=== PATIENT | male | born 1965 | race African-American/Black ===

== ENCOUNTER 2019-01-24 11:51 | Emergency (ER) | payer MEDICAID ==
[~2019-01-24] VITALS: Ht 160 cm; Wt 65.0 kg
[2019-01-24] MEDS ORDERED: KETOROLAC 30MG/ML VIAL IV STA (12:33)
[2019-01-24] MEDS ORDERED: SODIUM CHLORIDE 0.9% 1,000 ML IV ONE (12:33)
[2019-01-24] MEDS ORDERED: ONDANSETRON HCL 4MG/2ML INJ IV STA (12:33)
[2019-01-24] MEDS ORDERED: MORPHINE SULFATE 4 MG/ML CPJ (NOT FOR IM USE) IV STA (12:33)
[2019-01-24] MEDS ORDERED: PIPERACILLIN/TAZ 3.375G PREMIX 50 ML IV ONE (12:45)
[2019-01-24] MEDS ORDERED: VANCOMYCIN 1 G PREMIX 200 ML IV ONE (12:45)
[2019-01-24 13:01] LABS: BASOPHILS % 1.2 % (0.0-2.0); HEMATOCRIT. 55.9 % (42.0-52.0); HEMOGLOBIN. 18.6 g/dL (14.0-18.0); LYMPHOCYTES % 29.2 % (20.0-50.0); MEAN CORPUSCULAR HEMOGLOBIN 29.4 pg (28.0-32.0); MEAN CORPUSCULAR VOLUME 88.3 fL (80.0-94.0); MEAN PLATELET VOLUME 9.4 fl (7.4-10.4); MONOCYTES % 7.3 % (2.0-8.0); NEUTROPHILS % 58.3 % (40.0-76.0); PLATELET 133 x1000/uL (130-400); RED BLOOD CELL COUNT 6.32 mill/uL (4.7-6.1); RED CELL DISTRIBUTION WIDTH 14.5 % (11.6-14.6)
[2019-01-24 13:11] LABS: PROTHROMBIN TIME 10.6 sec (9.6-11.0)
[2019-01-24 13:12] LABS: CHLORIDE 106 mEq/L (98-107)
[2019-01-24 14:45] VITALS: BP 146/72
== END 2019-01-24 15:13 | disposition home or self-care (01) ==
LOC: ER 13:14
DX: L03.114 Cellulitis of left upper limb (principal); E11.9 Type 2 diabetes mellitus without complications; I10 Essential (primary) hypertension
CPT/HCPCS: 36415; 73120; 80053; 83605; 83880; 84484; 85025; 85610; 85730; 87040; 96365; 96367; 96375; 99284; J1885; J2270; J2405; J2543; J3370; J7030; Z7610

== ENCOUNTER 2019-02-16 00:48 | Emergency (ER) | payer MEDICAID ==
[~2019-02-16] VITALS: Ht 160 cm; Wt 67.0 kg
[2019-02-16] MEDS ORDERED: DIPHENHYDRAMINE 25MG CAPSULE PO ONE (03:15)
[2019-02-16 03:38] LABS: BASOPHILS % 0.8 % (0.0-2.0); EOSINOPHILS % 5.3 % (0.0-5.0); HEMOGLOBIN. 16.1 g/dL (14.0-18.0); LYMPHOCYTES % 26.6 % (20.0-50.0); MEAN CORPUSCULAR HEMOGLOBIN 29.2 pg (28.0-32.0); MEAN CORPUSCULAR VOLUME 87.3 fL (80.0-94.0); MEAN PLATELET VOLUME 8.7 fl (7.4-10.4); NEUTROPHILS % 58.3 % (40.0-76.0); PLATELET 113 x1000/uL (130-400); RED BLOOD CELL COUNT 5.49 mill/uL (4.7-6.1)
[2019-02-16 03:40] LABS: CHLORIDE 107 mEq/L (98-107)
[2019-02-16 03:42] LABS: PROTHROMBIN TIME 10.7 sec (9.6-11.0)
[2019-02-16 04:28] VITALS: BP 135/79
== END 2019-02-16 04:31 | disposition home or self-care (01) ==
LOC: ER 00:48
DX: S50.862A Insect bite (nonvenomous) of left forearm, initial encounter (principal); S50.861A Insect bite (nonvenomous) of right forearm, initial encounter; S70.362A Insect bite (nonvenomous), left thigh, initial encounter; S70.361A Insect bite (nonvenomous), right thigh, initial encounter; E11.9 Type 2 diabetes mellitus without complications; I10 Essential (primary) hypertension; Z90.49 Acquired absence of other specified parts of digestive tract; Z98.890 Other specified postprocedural states; W57.XXXA Bitten or stung by nonvenomous insect and other nonvenomous arthropods, initial encounter; Y93.89 Activity, other specified; Y92.89 Other specified places as the place of occurrence of the external cause; Y99.8 Other external cause status
CPT/HCPCS: 36415; 80053; 82962; 85025; 85610; 99283; Q0163

== ENCOUNTER 2019-02-22 09:01 | Emergency (ER) | payer MEDICAID ==
[~2019-02-22] VITALS: Ht 160 cm; Wt 68.0 kg
[2019-02-22] MEDS ORDERED: DIPHENHYDRAMINE 25MG CAPSULE PO ONE (09:30)
[2019-02-22 09:34] VITALS: BP 141/84
== END 2019-02-22 09:43 | disposition home or self-care (01) ==
LOC: ER 09:01
DX: L30.9 Dermatitis, unspecified (principal); E11.9 Type 2 diabetes mellitus without complications; I10 Essential (primary) hypertension; Z90.49 Acquired absence of other specified parts of digestive tract
CPT/HCPCS: 99283; Q0163

== ENCOUNTER 2019-03-28 20:57 | Emergency (ER) | payer MEDICAID ==
[~2019-03-28] VITALS: Ht 160 cm; Wt 67.0 kg
[2019-03-28 23:31] VITALS: BP 125/69
== END 2019-03-29 00:01 | disposition home or self-care (01) ==
LOC: ER 20:57
DX: S60.561A Insect bite (nonvenomous) of right hand, initial encounter (principal); L03.113 Cellulitis of right upper limb; E11.9 Type 2 diabetes mellitus without complications; I10 Essential (primary) hypertension; Z90.49 Acquired absence of other specified parts of digestive tract; W57.XXXA Bitten or stung by nonvenomous insect and other nonvenomous arthropods, initial encounter; Y93.89 Activity, other specified; Y92.018 Other place in single-family (private) house as the place of occurrence of the external cause
CPT/HCPCS: 99283

== ENCOUNTER 2019-04-24 01:02 | Emergency (ER) | payer MEDICAID ==
[~2019-04-24] VITALS: Ht 160 cm; Wt 65.0 kg
[2019-04-24 04:14] LABS: CLARITY URINE CLEAR (CLEAR); COLOR URINE YELLOW (YELLOW); KETONES URINE NEGATIVE (NEGATIVE); LEUKOCYTE ESTERASE URINE TRACE (NEGATIVE); NITRITE URINE NEGATIVE (NEGATIVE); OCCULT BLOOD URINE NEGATIVE (NEGATIVE); PH URINE 5.5 (4.5-8.0); PROTEIN URINE NEGATIVE (NEGATIVE); SPECIFIC GRAVITY URINE 1.039 (1.005-1.030)
[2019-04-24 04:32] LABS: BASOPHILS % 0.8 % (0.0-2.0); EOSINOPHILS % 3.6 % (0.0-5.0); HEMATOCRIT. 48.2 % (42.0-52.0); LYMPHOCYTES % 29.2 % (20.0-50.0); MEAN CORPUSCULAR VOLUME 87.5 fL (80.0-94.0); MEAN PLATELET VOLUME 10.2 fl (7.4-10.4); NEUTROPHILS % 57.4 % (40.0-76.0); PLATELET 117 x1000/uL (130-400); RED BLOOD CELL COUNT 5.51 mill/uL (4.7-6.1); RED CELL DISTRIBUTION WIDTH 13.6 % (11.6-14.6)
[2019-04-24 04:38] LABS: CHLORIDE 107 mEq/L (98-107)
[2019-04-24] MEDS ORDERED: INSULIN REGULAR (HUMULIN R) UD 100 UNITS/ML SYR SUBCUT ONE (05:00)
[2019-04-24] MEDS ORDERED: INSULIN REGULAR (HUMULIN R) 300UNITS/3ML SUBCUT SCH (05:45)
[2019-04-24 06:00] VITALS: BP 147/57
== END 2019-04-24 06:41 | disposition home or self-care (01) ==
LOC: ER 02:19
DX: N30.00 Acute cystitis without hematuria (principal); E11.65 Type 2 diabetes mellitus with hyperglycemia; I10 Essential (primary) hypertension; Z79.4 Long term (current) use of insulin; Z90.49 Acquired absence of other specified parts of digestive tract
CPT/HCPCS: 36415; 80053; 81003; 82962; 83690; 85025; 87086; 96372; 99283; J1815

== ENCOUNTER 2019-08-26 23:27 | Emergency (ER) | payer MEDICAID ==
[~2019-08-26] VITALS: Ht 160 cm; Wt 65.0 kg
[2019-08-27] MEDS ORDERED: KETOROLAC 60MG/2ML VIAL IM ONE (08:15)
[2019-08-27 08:43] LABS: CLARITY URINE CLEAR (CLEAR); COLOR URINE YELLOW (YELLOW); KETONES URINE NEGATIVE (NEGATIVE); LEUKOCYTE ESTERASE URINE NEGATIVE (NEGATIVE); NITRITE URINE NEGATIVE (NEGATIVE); OCCULT BLOOD URINE NEGATIVE (NEGATIVE); PROTEIN URINE NEGATIVE (NEGATIVE); UROBILINOGEN URINE 0.2 E.U./dL (0.2-1.0)
[2019-08-27] MEDS ORDERED: LIDOCAINE HCL 1% 20ML VIAL (Pyxis) INJ INFIL ONE (09:00)
[2019-08-27] MEDS ORDERED: CEFTRIAXONE SODIUM 1 G/VIAL IM ONE (09:00)
[2019-08-27 09:22] VITALS: BP 155/78
== END 2019-08-27 09:25 | disposition home or self-care (01) ==
LOC: ER 23:27
DX: R30.0 Dysuria (principal); I10 Essential (primary) hypertension; E11.9 Type 2 diabetes mellitus without complications; Z87.440 Personal history of urinary (tract) infections; Z90.49 Acquired absence of other specified parts of digestive tract
CPT/HCPCS: 81003; 87086; 96372; 99284; J0696; J1885; J3490

== ENCOUNTER 2020-01-21 00:17 | Emergency (ER) | payer MEDICAID ==
[~2020-01-21] VITALS: Ht 160 cm; Wt 64.0 kg
[2020-01-21 00:46] VITALS: BP 146/93
[2020-01-21] MEDS ORDERED: LIDOCAINE HCL 1% 20ML VIAL (Pyxis) INJ INFIL ONE (01:45)
[2020-01-21] MEDS ORDERED: AZITHROMYCIN 500 MG TABLET PO ONE (01:45)
[2020-01-21] MEDS ORDERED: CEFTRIAXONE SODIUM 250 MG/VIAL IM ONE (01:45)
[2020-01-21 02:43] LABS: CLARITY URINE CLEAR (CLEAR); COLOR URINE YELLOW (YELLOW); KETONES URINE TRACE (NEGATIVE); LEUKOCYTE ESTERASE URINE NEGATIVE (NEGATIVE); NITRITE URINE NEGATIVE (NEGATIVE); OCCULT BLOOD URINE NEGATIVE (NEGATIVE); PROTEIN URINE 1+ (NEGATIVE); SPECIFIC GRAVITY URINE 1.039 (1.005-1.030); UROBILINOGEN URINE 0.2 E.U./dL (0.2-1.0)
== END 2020-01-21 03:18 | disposition home or self-care (01) ==
LOC: ER 00:17
DX: N34.2 Other urethritis (principal); R30.0 Dysuria; E11.9 Type 2 diabetes mellitus without complications; I10 Essential (primary) hypertension; Z87.440 Personal history of urinary (tract) infections; Z90.49 Acquired absence of other specified parts of digestive tract
CPT/HCPCS: 81003; 96372; 99283; J0696; J3490

== ENCOUNTER 2020-01-24 15:27 | Emergency (ER) | payer MEDICAID ==
[~2020-01-24] VITALS: Ht 160 cm; Wt 63.0 kg
[2020-01-24 15:39] VITALS: BP 142/99
[2020-01-24 16:59] LABS: CLARITY URINE CLEAR (CLEAR); COLOR URINE YELLOW (YELLOW); KETONES URINE NEGATIVE (NEGATIVE); LEUKOCYTE ESTERASE URINE NEGATIVE (NEGATIVE); NITRITE URINE NEGATIVE (NEGATIVE); OCCULT BLOOD URINE NEGATIVE (NEGATIVE); PROTEIN URINE NEGATIVE (NEGATIVE); SPECIFIC GRAVITY URINE 1.038 (1.005-1.030); UROBILINOGEN URINE 0.2 E.U./dL (0.2-1.0)
[2020-01-24] MEDS ORDERED: SODIUM CHLORIDE 0.9% 1,000 ML IV ONE (17:28)
[2020-01-24 17:46] LABS: BASOPHILS % 0.7 % (0.0-2.0); EOSINOPHILS % 0.7 % (0.0-5.0); HEMATOCRIT. 51.7 % (42.0-52.0); HEMOGLOBIN. 17.3 g/dL (14.0-18.0); LYMPHOCYTES % 26.1 % (20.0-50.0); MEAN CORPUSCULAR HEMOGLOBIN 29.2 pg (28.0-32.0); MEAN CORPUSCULAR VOLUME 87.3 fL (80.0-94.0); MEAN PLATELET VOLUME 9.7 fl (7.4-10.4); MONOCYTES % 14.2 % (2.0-8.0); NEUTROPHILS % 58.3 % (40.0-76.0); PLATELET 115 x1000/uL (130-400); RED BLOOD CELL COUNT 5.92 mill/uL (4.7-6.1); RED CELL DISTRIBUTION WIDTH 13.7 % (11.6-14.6)
[2020-01-24 17:52] LABS: CHLORIDE 102 mEq/L (98-107)
[2020-01-24 18:00] LABS: BETA HYDROXYBUTYRATE 0.1 mMol/L (0.0-0.3)
[2020-01-24] MEDS ORDERED: INSULIN REGULAR (HUMULIN R) 300UNITS/3ML SUBCUT ONE (19:45)
== END 2020-01-24 21:12 | disposition home or self-care (01) ==
LOC: ER 15:27
DX: N48.1 Balanitis (principal); E11.65 Type 2 diabetes mellitus with hyperglycemia; I10 Essential (primary) hypertension; Z90.49 Acquired absence of other specified parts of digestive tract; Z79.4 Long term (current) use of insulin
CPT/HCPCS: 36415; 80053; 81003; 82010; 82962; 85025; 87086; 96372; 99283; J1815; J7030

== ENCOUNTER 2020-05-31 16:49 | Emergency (ER) | payer MEDICAID ==
[~2020-05-31] VITALS: Ht 157.5 cm; Wt 66.0 kg
[2020-05-31] MEDS ORDERED: AZITHROMYCIN 500 MG TABLET PO ONE (21:30)
[2020-05-31] MEDS ORDERED: LIDOCAINE HCL 1% 20ML VIAL (Pyxis) INJ INFIL ONE (21:30)
[2020-05-31] MEDS ORDERED: CEFTRIAXONE SODIUM 250 MG/VIAL IM ONE (21:30)
[2020-05-31 21:31] LABS: CLARITY URINE CLOUDY (CLEAR); COLOR URINE YELLOW (YELLOW); KETONES URINE 1+ (NEGATIVE); LEUKOCYTE ESTERASE URINE NEGATIVE (NEGATIVE); NITRITE URINE NEGATIVE (NEGATIVE); OCCULT BLOOD URINE NEGATIVE (NEGATIVE); PROTEIN URINE 1+ (NEGATIVE); SPECIFIC GRAVITY URINE 1.036 (1.005-1.030); UROBILINOGEN URINE 0.2 E.U./dL (0.2-1.0)
[2020-05-31 22:25] VITALS: BP 160/96
== END 2020-05-31 22:27 | disposition home or self-care (01) ==
LOC: ER 16:49
DX: N34.2 Other urethritis (principal); E11.9 Type 2 diabetes mellitus without complications; I10 Essential (primary) hypertension; B20 Human immunodeficiency virus [HIV] disease; Z90.49 Acquired absence of other specified parts of digestive tract; Z87.440 Personal history of urinary (tract) infections
CPT/HCPCS: 81003; 96372; 99283; J0696; J3490

== ENCOUNTER 2020-11-23 23:01 | Inpatient (IN) | payer MEDICAID ==
[~2020-11-23] VITALS: Ht 157.5 cm; Wt 64.0 kg
[2020-11-24] MEDS ORDERED: PIPERACILLIN/TAZ 3.375G PREMIX 50 ML IV ONE (00:30)
[2020-11-24] MEDS ORDERED: VANCOMYCIN 1 G PREMIX 200 ML IV ONE (00:30)
[2020-11-24 00:54] LABS: EOSINOPHILS % 1.2 % (0.0-5.0); HEMATOCRIT. 46.9 % (42.0-52.0); HEMOGLOBIN. 16.1 g/dL (14.0-18.0); LYMPHOCYTES % 29.6 % (20.0-50.0); MEAN CORPUSCULAR HEMOGLOBIN 29.4 pg (28.0-32.0); MEAN CORPUSCULAR VOLUME 85.8 fL (80.0-94.0); MEAN PLATELET VOLUME 9.3 fl (7.4-10.4); MONOCYTES % 9.5 % (2.0-8.0); NEUTROPHILS % 58.7 % (40.0-76.0); PLATELET 161 x1000/uL (130-400); RED BLOOD CELL COUNT 5.47 mill/uL (4.7-6.1); RED CELL DISTRIBUTION WIDTH 13.9 % (11.6-14.6)
[2020-11-24 00:58] LABS: CHLORIDE 104 mEq/L (98-107)
[2020-11-24 01:02] LABS: PROTHROMBIN TIME 10.6 sec (9.6-11.0)
[2020-11-24] MEDS ORDERED: VANCOMYCIN 1 G PREMIX 200 ML IV SCH (03:00)
[2020-11-24] MEDS ORDERED: PIPERACILLIN/TAZ 3.375G PREMIX 50 ML IV SCH ×2 (03:00→09:00)
[2020-11-24] MEDS ORDERED: MAGNESIUM/ALUMINUM HYDROXIDE/SIMETHICONE 30ML UDC PO PRN (03:00)
[2020-11-24] MEDS ORDERED: DIPHENHYDRAMINE 50MG/ML VIAL IV PRN (03:00)
[2020-11-24] MEDS ORDERED: DEXTROSE 50% WATER 50ML SYRINGE IV PRN (03:00)
[2020-11-24] MEDS ORDERED: ZOLPIDEM TARTRATE 5MG TABLET PO PRN (03:00)
[2020-11-24] MEDS ORDERED: CLONIDINE 0.1MG TABLET PO PRN (03:00)
[2020-11-24] MEDS ORDERED: ACETAMINOPHEN 325MG TABLET PO PRN ×2 (03:00)
[2020-11-24] MEDS ORDERED: ONDANSETRON HCL 4MG/2ML INJ IV PRN (03:00)
[2020-11-24] MEDS: SODIUM CHLORIDE 0.9% INJ 3ML FLUSH IVF SCH ×3 (06:29→21:06)
[2020-11-24] MEDS: BLOOD SUGAR DIAGNOSTIC STRIP TEST SCH ×4 (09:00→20:52)
[2020-11-24] MEDS ORDERED: PIPERACILLIN/TAZOBACTAM 3.375 G in DEXT 5% WATER 100 ML IV SCH (10:00)
[2020-11-24] MEDS ORDERED: DOLU50TA MT (11:06)
[2020-11-24] MEDS ORDERED: LISI20TA31 MT (11:06)
[2020-11-24] MEDS ORDERED: [UNRECOGNIZED DRUG - OTHER] (11:07)
[2020-11-24] MEDS ORDERED: SULF1TAB47 PO (11:07)
[2020-11-24] MEDS ORDERED: LANTUSUD SUBCUT (11:07)
[2020-11-24 12:00] VITALS: BP 134/87
[2020-11-24] MEDS ORDERED: VANCOMYCIN 750 MG PREMIX 150 ML IV SCH (12:00)
[2020-11-24] MEDS: VANCOMYCIN 1 G PREMIX 200 ML IV SCH (12:00)
[2020-11-24] MEDS: INSULIN LISPRO 100 UNITS/ML SUBCUT SCH ×3 (12:50→21:13)
[2020-11-24] MEDS ORDERED: TETANUS AND DIPHTHERIA TOX/PF 0.5ML SYR (ADULT) IM ONE (14:15)
[2020-11-24 14:50] VITALS: BP 134/87
[2020-11-24] MEDS: SULFAMETHOXAZOLE/TRIMETHOPRIM 800/160MG TABLET PO SCH (16:00)
[2020-11-24] MEDS: PIPERACILLIN/TAZOBACTAM 3.375 G in DEXT 5% WATER 100 ML IV SCH ×2 (16:00→21:06)
[2020-11-24] MEDS: ENOXAPARIN 40MG/0.4ML SYR SUBCUT SCH (17:30)
[2020-11-24 20:00] VITALS: BP 130/76
[2020-11-24] MEDS ORDERED: HYDROCODONE/ACETAMINOPHEN 10/325MG TABLET PO PRN (20:00)
[2020-11-24] MEDS: LISINOPRIL 10MG TABLET PO SCH (21:06)
[2020-11-24] MEDS ORDERED: INSULIN GLARGINE UD 100 UNITS/ML SYR SUBCUT SCH (22:00)
[2020-11-25] VITALS: BP 119/76
[2020-11-25] MEDS: VANCOMYCIN 1 G PREMIX 200 ML IV SCH ×2 (00:54→15:18)
[2020-11-25] MEDS: PIPERACILLIN/TAZOBACTAM 3.375 G in DEXT 5% WATER 100 ML IV SCH ×4 (03:52→21:55)
[2020-11-25 04:00] VITALS: BP 126/81
[2020-11-25] MEDS: BLOOD SUGAR DIAGNOSTIC STRIP TEST SCH ×4 (06:21→21:34)
[2020-11-25] MEDS: SODIUM CHLORIDE 0.9% INJ 3ML FLUSH IVF SCH ×3 (06:22→21:55)
[2020-11-25] MEDS: INSULIN LISPRO 100 UNITS/ML SUBCUT SCH ×5 (06:26→21:56)
[2020-11-25 07:27] LABS: CHLORIDE 101 mEq/L (98-107)
[2020-11-25 07:37] LABS: C REACTIVE PROTEIN QUANT 5.3 mg/L (0.0-3.0)
[2020-11-25 08:00] VITALS: BP 136/94
[2020-11-25] MEDS: LISINOPRIL 10MG TABLET PO SCH ×2 (10:06→21:57)
[2020-11-25] MEDS: SULFAMETHOXAZOLE/TRIMETHOPRIM 800/160MG TABLET PO SCH (10:06)
[2020-11-25] MEDS: ENOXAPARIN 40MG/0.4ML SYR SUBCUT SCH (10:07)
[2020-11-25 12:00] VITALS: BP 114/76
[2020-11-25 16:00] VITALS: BP 116/67
[2020-11-25 20:00] VITALS: BP 121/73
[2020-11-25] MEDS: INSULIN GLARGINE UD 100 UNITS/ML SYR SUBCUT SCH (21:57)
[2020-11-26 00:04] VITALS: BP 116/66
[2020-11-26] MEDS: VANCOMYCIN 1 G PREMIX 200 ML IV SCH ×2 (02:12→12:18)
[2020-11-26 04:00] VITALS: BP 152/75
[2020-11-26] MEDS: PIPERACILLIN/TAZOBACTAM 3.375 G in DEXT 5% WATER 100 ML IV SCH ×4 (05:56→22:35)
[2020-11-26] MEDS: SODIUM CHLORIDE 0.9% INJ 3ML FLUSH IVF SCH ×3 (05:56→22:36)
[2020-11-26] MEDS: BLOOD SUGAR DIAGNOSTIC STRIP TEST SCH ×4 (06:04→21:00)
[2020-11-26 08:00] VITALS: BP 125/79
[2020-11-26 09:24] LABS: CHLORIDE 106 mEq/L (98-107)
[2020-11-26] MEDS: SULFAMETHOXAZOLE/TRIMETHOPRIM 800/160MG TABLET PO SCH (09:55)
[2020-11-26] MEDS: LISINOPRIL 10MG TABLET PO SCH ×2 (09:56→22:36)
[2020-11-26] MEDS: ENOXAPARIN 40MG/0.4ML SYR SUBCUT SCH (09:57)
[2020-11-26] MEDS: HYDROCODONE/ACETAMINOPHEN 5/325MG TABLET PO PRN ×2 (10:21→22:47)
[2020-11-26] MEDS: INSULIN LISPRO 100 UNITS/ML SUBCUT SCH ×4 (10:23→22:38)
[2020-11-26 12:00] VITALS: BP_SYST 131; BP_SYST 151; BP_DIAS 88; BP_DIAS 92
[2020-11-26 16:00] VITALS: BP 132/75
[2020-11-26 20:00] VITALS: BP 120/69
[2020-11-26] MEDS: INSULIN GLARGINE UD 100 UNITS/ML SYR SUBCUT SCH (22:38)
[2020-11-27] VITALS: BP 124/55
[2020-11-27] MEDS: VANCOMYCIN 1 G PREMIX 200 ML IV SCH (00:42)
[2020-11-27] MEDS: PIPERACILLIN/TAZOBACTAM 3.375 G in DEXT 5% WATER 100 ML IV SCH ×2 (02:31→08:48)
[2020-11-27 04:00] VITALS: BP 109/67
[2020-11-27] MEDS: SODIUM CHLORIDE 0.9% INJ 3ML FLUSH IVF SCH ×2 (06:25→12:45)
[2020-11-27] MEDS: BLOOD SUGAR DIAGNOSTIC STRIP TEST SCH ×2 (07:43→12:40)
[2020-11-27 08:00] VITALS: BP 109/69
[2020-11-27] MEDS: LISINOPRIL 10MG TABLET PO SCH (08:48)
[2020-11-27] MEDS: SULFAMETHOXAZOLE/TRIMETHOPRIM 800/160MG TABLET PO SCH (08:48)
[2020-11-27] MEDS: ENOXAPARIN 40MG/0.4ML SYR SUBCUT SCH (08:49)
[2020-11-27] MEDS: INSULIN LISPRO 100 UNITS/ML SUBCUT SCH ×2 (09:28→14:18)
[2020-11-27 12:00] VITALS: BP 109/64
[2020-11-27 14:44] VITALS: BP 109/64
[2020-11-28 09:11] LABS: % CD 3 POS. LYMPHOCYTES 67.4 % (57.5-86.2); % CD 4 POS. LYMPHOCYTES 12.8 % (30.8-58.5); % CD 8 POS. LYMPH 54.1 % (12.0-35.5); ABSOLUTE CD 3 607 /uL (622-2402); ABSOLUTE CD 4 HELPER 115 /uL (359-1519); ABSOLUTE CD 8 SUPPRESSOR 487 /uL (109-897); ABSOLUTE EOSINOPHILS 0.1 x10E3/uL (0.0-0.4); ABSOLUTE LYMPHOCYTES 0.9 x10E3/uL (0.7-3.1); ABSOLUTE MONOCYTES 0.6 x10E3/uL (0.1-0.9); ABSOLUTE NEUTROPHILS 3.8 x10E3/uL (1.4-7.0); BASOPHILS 1 % (Not Estab.); CD4/CD8 RATIO 0.24 (0.92-3.72); HEMATOCRIT 54.2 % (37.5-51.0); HEMOGLOBIN 17.6 g/dL (13.0-17.7); IMMATURE GRANULOCYTES 1 % (Not Estab.); LYMPHOCYTES 16 % (Not Estab.); MEAN CORPUSCULAR HEMOGLOBIN 28.4 pg (26.6-33.0); MEAN CORPUSCULAR HGB CONC. 32.5 g/dL (31.5-35.7); MEAN CORPUSCULAR VOLUME 87 fL (79-97); MONOCYTES 12 % (Not Estab.); NEUTROPHILS 69 % (Not Estab.); PLATELETS 167 x10E3/uL (150-450); RED CELL DISTRIBUTION WIDTH 13.9 % (11.6-15.4); WBC 5.4 x10E3/uL (3.4-10.8)
== END 2020-11-27 15:44 | disposition home or self-care (01) | DRG 344 ==
LOC: ER 23:01 → 6EST 11-24 02:00 → ENRESERV 11-24 08:37
PROVIDERS: ADMIT Internal Medicine; ATTEND Internal Medicine
DX: M00.861 Arthritis due to other bacteria, right knee (principal); E11.622 Type 2 diabetes mellitus with other skin ulcer; L97.819 Non-pressure chronic ulcer of other part of right lower leg with unspecified severity; E11.9 Type 2 diabetes mellitus without complications; M01.X61 Direct infection of right knee in infectious and parasitic diseases classified elsewhere; G89.4 Chronic pain syndrome; Z21 Asymptomatic human immunodeficiency virus [HIV] infection status; I10 Essential (primary) hypertension; M19.90 Unspecified osteoarthritis, unspecified site; Z22.322 Carrier or suspected carrier of Methicillin resistant Staphylococcus aureus; Z79.899 Other long term (current) drug therapy; Z90.49 Acquired absence of other specified parts of digestive tract
CPT/HCPCS: 36415; 73562; 73721; 80048; 80053; 80202; 82962; 83036; 83605; 85025; 85651; 86140; 86359; 86360; 87070; 87077; 87186; 90714; 99285; J1650; J1815; J2543; J3370; J7040; J7060

== ENCOUNTER 2021-05-08 20:43 | Emergency (ER) | payer MEDICAID ==
[~2021-05-08] VITALS: Ht 160 cm; Wt 64.0 kg
[~2021-05-08 20:43] MED LIST: DOLU50TA MT; DOXY100T2 MT; LANTUSUD SUBCUT; LISI20TA31 MT; SULF1TAB47 PO; [UNRECOGNIZED DRUG - OTHER]
[2021-05-08 21:07] VITALS: BP 141/98
[2021-05-08] MEDS ORDERED: LIDOCAINE HCL/PF 1% 10 MG/ML 5ML VIAL INFIL ONE (23:45)
[2021-05-08] MEDS ORDERED: ACETAMINOPHEN WITH CODEINE 300/30MG TABLET PO ONE (23:45)
[2021-05-08] MEDS ORDERED: CEFTRIAXONE SODIUM 500 MG/VIAL IM ONE (23:45)
[2021-05-08] MEDS ORDERED: DOXYCYCLINE HYCLATE 100MG CAPSULE PO ONE (23:45)
[2021-05-08 23:56] LABS: CLARITY URINE CLEAR (CLEAR); COLOR URINE YELLOW (YELLOW); KETONES URINE TRACE (NEGATIVE); LEUKOCYTE ESTERASE URINE NEGATIVE (NEGATIVE); NITRITE URINE NEGATIVE (NEGATIVE); OCCULT BLOOD URINE NEGATIVE (NEGATIVE); PROTEIN URINE TRACE (NEGATIVE); SPECIFIC GRAVITY URINE 1.035 (1.005-1.030)
[2021-05-09] MEDS ORDERED: ACET-2708 MT (00:54)
[2021-05-09] MEDS ORDERED: DOXY-326 MT (00:54)
== END 2021-05-09 01:59 | disposition home or self-care (01) ==
LOC: ER 20:43
DX: S70.11XA Contusion of right thigh, initial encounter (principal); R36.9 Urethral discharge, unspecified; I10 Essential (primary) hypertension; B20 Human immunodeficiency virus [HIV] disease; E11.9 Type 2 diabetes mellitus without complications; X58.XXXA Exposure to other specified factors, initial encounter; Y93.9 Activity, unspecified; Y92.9 Unspecified place or not applicable; Z11.3 Encounter for screening for infections with a predominantly sexual mode of transmission; Z79.4 Long term (current) use of insulin; Z90.49 Acquired absence of other specified parts of digestive tract; Z87.440 Personal history of urinary (tract) infections
CPT/HCPCS: 73551; 81003; 96372; 99284; J0696; J3490

== ENCOUNTER 2023-09-23 22:18 | Emergency (ER) | payer MEDICAID ==
[~2023-09-23] VITALS: Ht 160 cm; Wt 65.0 kg
[~2023-09-23 22:18] MED LIST changes: +ACET-2708 MT; +DOXY-456 MT
[2023-09-23 22:24] VITALS: TEMP 98.6; O2SAT 98
[2023-09-24] MEDS ORDERED: IBUP-2029 MT (00:40)
[2023-09-24 01:12] VITALS: BP 148/89; PULSE 72; RESP 15
[2023-09-24] MEDS: KETOROLAC 30MG/ML VIAL IM ONE (01:12)
== END 2023-09-24 01:17 | disposition home or self-care (01) ==
LOC: ER 22:18
DX: S02.2XXA Fracture of nasal bones, initial encounter for closed fracture (principal); S00.83XA Contusion of other part of head, initial encounter; S00.511A Abrasion of lip, initial encounter; E11.9 Type 2 diabetes mellitus without complications; I10 Essential (primary) hypertension; Z90.49 Acquired absence of other specified parts of digestive tract; Z98.890 Other specified postprocedural states; Y08.89XA Assault by other specified means, initial encounter; Y93.89 Activity, other specified; Y92.89 Other specified places as the place of occurrence of the external cause; Y99.8 Other external cause status
CPT/HCPCS: 70450; 70486; 99285; 96372; J1885; Z7610

== ENCOUNTER 2024-05-17 12:24 | Emergency (ER) | payer MEDICAID ==
[~2024-05-17] VITALS: Ht 162.6 cm; Wt 60.0 kg
[~2024-05-17 12:24] MED LIST changes: -DOXY-456 MT; +DOXY100C74 MT; +IBUP-2029 MT
[2024-05-17 12:30] VITALS: O2SAT 98
[2024-05-17 12:55] VITALS: BP 116/66; PULSE 71; RESP 16; TEMP 97.9; O2SAT 98
[2024-05-17 13:25] LABS: POTASSIUM 4.2 mEq/L (3.5-5.1)
[2024-05-17 13:26] LABS: CALCIUM 9.3 mg/dL (8.7-10.4)
[2024-05-17 13:31] LABS: CREATININE 1.7 mg/dL (0.6-1.3)
[2024-05-17 13:42] LABS: BASOPHILS % 1.2 % (0.0-2.0); EOSINOPHILS % 3.4 % (0.0-5.0); HEMATOCRIT. 46.3 % (42.0-52.0); HEMOGLOBIN. 15.5 g/dL (14.0-18.0); MEAN CORPUSCULAR HEMOGLOBIN 30.1 pg (28.0-32.0); MEAN CORPUSCULAR HGB CONC 33.6 g/dL (31.0-37.0); MEAN CORPUSCULAR VOLUME 89.7 fL (80.0-94.0); MEAN PLATELET VOLUME 10.1 fl (7.4-10.4); MONOCYTES % 5.3 % (2.0-8.0); NEUTROPHILS % 66.1 % (40.0-76.0); PLATELET 137 x1000/uL (130-400); RED BLOOD CELL COUNT 5.17 mill/uL (4.7-6.1); WHITE BLOOD COUNT 4.1 x1000/uL (4.5-11.0)
[2024-05-17] MEDS ORDERED: SODIUM CHLORIDE 0.9% 1,000 ML IV ONE (14:15)
[2024-05-17 15:27] LABS: CLARITY URINE CLEAR (CLEAR); COLOR URINE YELLOW (YELLOW); GLUCOSE URINE 3+ (NEGATIVE); KETONES URINE NEGATIVE (NEGATIVE); LEUKOCYTE ESTERASE URINE NEGATIVE (NEGATIVE); NITRITE URINE NEGATIVE (NEGATIVE); OCCULT BLOOD URINE NEGATIVE (NEGATIVE); PROTEIN URINE NEGATIVE (NEGATIVE); SPECIFIC GRAVITY URINE 1.034 (1.005-1.030); UROBILINOGEN URINE 0.2 E.U./dL (0.2-1.0)
[2024-05-17 17:38] LABS: BACTERIA URINE TRACE; RBC URINE NONE SEEN /hpf (0-2); SQUAMOUS EPITHELIAL CELL URINE RARE /lpf (RARE/1+); WBC URINE 0-2 /hpf (0-2)
== END 2024-05-17 15:05 | disposition home or self-care (01) ==
LOC: ER 12:34
DX: E11.65 Type 2 diabetes mellitus with hyperglycemia (principal); I10 Essential (primary) hypertension; Z90.49 Acquired absence of other specified parts of digestive tract; Z87.440 Personal history of urinary (tract) infections; Z79.899 Other long term (current) drug therapy; Z79.4 Long term (current) use of insulin
CPT/HCPCS: 80048; 81003; 85025; 36415; 99283; J7030; Z7610 ×2

== ENCOUNTER 2024-08-29 18:35 | Emergency (ER) | payer MEDICAID ==
[~2024-08-29] VITALS: Ht 160 cm; Wt 63.5 kg
[2024-08-29 18:36] VITALS: O2SAT 99
[2024-08-29 18:39] VITALS: BP 169/98; PULSE 79; RESP 16; TEMP 36.8; O2SAT 96
[2024-08-29] MEDS: CEFTRIAXONE SODIUM 500MG VIAL IM ONE (23:30)
[2024-08-29] MEDS: DOXYCYCLINE HYCLATE 100MG CAPSULE PO ONE (23:30)
[2024-08-29] MEDS ORDERED: DOXY100C5 MT (23:56)
[2024-08-29] MEDS ORDERED: CEPH500C2 MT (23:57)
[2024-08-29] MEDS ORDERED: PHEN-909 MT (23:57)
[2024-08-30] MEDS ORDERED: LIDOCAINE HCL 1% 20ML VIAL INFIL ONE (00:15)
== END 2024-08-30 00:28 | disposition home or self-care (01) ==
LOC: ER 18:35
DX: Z20.2 Contact with and (suspected) exposure to infections with a predominantly sexual mode of transmission (principal); E11.9 Type 2 diabetes mellitus without complications; I10 Essential (primary) hypertension; Z79.899 Other long term (current) drug therapy; Z90.49 Acquired absence of other specified parts of digestive tract; Z98.890 Other specified postprocedural states
CPT/HCPCS: 99283; 96372; J0696; J3490

== ENCOUNTER 2024-10-24 15:17 | Emergency (ER) | payer MEDICAID ==
[~2024-10-24] VITALS: Ht 160 cm; Wt 63.5 kg
[~2024-10-24 15:17] MED LIST changes: +CEPH500C2 MT; +DOXY-461 MT; +DOXY100C5 MT; -DOXY100C74 MT; +PHEN-909 MT
[2024-10-24 15:59] VITALS: O2SAT 98
[2024-10-24 17:19] LABS: CLARITY URINE CLEAR (CLEAR); COLOR URINE YELLOW (YELLOW); GLUCOSE URINE 3+ (NEGATIVE); KETONES URINE TRACE (NEGATIVE); LEUKOCYTE ESTERASE URINE NEGATIVE (NEGATIVE); NITRITE URINE NEGATIVE (NEGATIVE); OCCULT BLOOD URINE NEGATIVE (NEGATIVE); PROTEIN URINE TRACE (NEGATIVE); SPECIFIC GRAVITY URINE 1.027 (1.005-1.030)
[2024-10-24 17:46] LABS: BACTERIA URINE TRACE; RBC URINE NONE SEEN /hpf (0-2); SQUAMOUS EPITHELIAL CELL URINE RARE /lpf (RARE/1+); WBC URINE 0-2 /hpf (0-2)
[2024-10-24] MEDS ORDERED: PYR200 MT (18:47)
[2024-10-24] MEDS ORDERED: METR-167 MT (18:47)
[2024-10-24] MEDS ORDERED: DOXY100T28 MT (18:47)
[2024-10-24] MEDS: CEFTRIAXONE SODIUM 1G VIAL IM NR (18:59)
[2024-10-24] MEDS: LIDOCAINE HCL/PF 1% 10 MG/ML 5ML VIAL INFIL NR (19:00)
[2024-10-24 19:14] VITALS: BP 183/101; PULSE 64; RESP 18; TEMP 36.8; O2SAT 100
[2024-10-27 04:09] LABS: CHLAMYDIA TRACHOMATIS NAA Negative (Negative); NEISSERIA GONORRHOEAE NAA Negative (Negative)
== END 2024-10-24 19:18 | disposition home or self-care (01) ==
LOC: ER 15:17
DX: N34.2 Other urethritis (principal); I10 Essential (primary) hypertension; E11.9 Type 2 diabetes mellitus without complications; Z79.899 Other long term (current) drug therapy; Z90.49 Acquired absence of other specified parts of digestive tract; Z98.890 Other specified postprocedural states
CPT/HCPCS: 99283; 87491; 87591; 81003; 87086; 96372; J0696; J2003